=== PATIENT | female | born 1980 | race Hispanic/Latino ===

== ENCOUNTER 2017-10-14 20:18 | Emergency (ER) | payer MEDICAID, SELFPAY ==
[2017-10-14 22:03] LABS: #Basophils 0.1 thou/uL (0.0-0.2); #Eosinphils 0.1 thou/uL (0.0-0.7); #Lymphocytes 1.8 thou/uL (1.20-3.40); #Monocytes 0.8 thou/uL (0.11-0.59); #Neutrophils 9.2 thou/uL (1.40-6.50); %Basophils 0.5 % (0.0-1.0); %Eosinophils 0.5 % (0.0-10.0); %Monocytes 6.6 % (0.0-10.0); %Neutrophils 77.4 % (42.0-75.0); Hemoglobin 13.1 g/dL (12.0-16.0); Mean Corpuscular HGB CONC 33.7 g/dL (32.0-36.0); Mean Corpuscular Hemoglobin 29.1 pg (27.0-31.0); Mean Corpuscular Volume 86.5 fl (81.0-99.0); Mean Platelet Volume 6.6 fL (7.4-10.4); Platelet Count 360 thou/uL (130-400); RBC Distribution Width 12.6 % (11.5-14.5); Red Blood Cell (RBC) Count 4.51 mill/uL (4.20-5.40); White Blood Cell (WBC) Count 11.9 thou/uL (4.8-10.8)
[2017-10-14 22:26] LABS: ALT (SGPT) 14 U/L (8-55); AST (SGOT) 13 U/L (5-34); Albumin 4.1 g/dL (3.5-5.0); Alkaline Phosphatase 88 U/L (40-150); Anion Gap 12 mmol/L (10-20); BUN (Urea Nitrogen) 13 mg/dL (7.0-18.7); Bilirubin, Total 0.3 mg/dL (0.2-1.2); Calc. Creatinine Clearance 0 mL/min (70-130); Calcium 8.9 mg/dL (7.8-10.44); Carbon Dioxide 21 mmol/L (22-29); Chloride 111 mmol/L (98-107); Estimated GFR-MDRD Greater than 90; Glucose 119 mg/dL (70-105); Potassium 3.6 mmol/L (3.5-5.1); Protein, Total 7.1 g/dL (6.0-8.3); Sodium 140 mmol/L (136-145)
--- NOTE | 2017-10-14 22:29 | RAD ---
AP VIEW CHEST: Date: 10/14/17 INDICATION: Anxiety and fall. COMPARISON: None. IMPRESSION: No acute cardiopulmonary abnormality. COMMENTS: No comparisons available. The lungs are clear. Cardiomediastinal silhouette is within normal limits. No definite acute osseous abnormality is evident. POS: [facility]
[2017-10-14 23:08] LABS: Bilirubin Negative (Negative); Blood, Urine Small (Negative); Clarity CLOUDY (Clear); Glucose, Urine (Dipstick) Negative (Negative); Leukocyte Negative (Negative); Nitrite Negative (Negative); Protein, Urine (Dipstick) 30 mg/dL (Neg-Trace); Specific Gravity, Urine 1.023 (1.002-1.036)
[2017-10-14 23:09] LABS: Pregnancy Test - Urine (BHCG) Negative (Negative); Pregu Control Background? CLEAR/WHITE (CLR/WHITE); Pregu Control Bar Appear? YES (CONTROL BAR); Specific Gravity 1.023 (1.002-1.036)
[2017-10-14 23:10] LABS: Bacteria/HPF 1+ HPF (None Seen); Hyaline Casts/LPF 7-10 HYALINE CAST LPF (0-3 Hyaline); Pathc Cast-AUWi Flag 1.74 (0-2.49)
[2017-10-14 23:15] LABS: Crystals/HPF None Seen HPF (Negative); Yeast-All Forms None Seen HPF (None Seen)
== END 2017-10-15 01:06 | disposition home or self-care (01) ==
LOC: ERS 20:18
DX: R55 Syncope and collapse (principal)
CPT/HCPCS: 36415; 71045; 80053; 81003; 81015; 81025; 85025; 93005

== ENCOUNTER 2020-02-09 11:27 | Emergency (ER) | payer SELFPAY ==
[2020-02-09] MEDS ORDERED: Ondansetron PF 4 MG/2 ML Vial ONE (12:08)
[2020-02-09] MEDS ORDERED: Morphine 4 MG/ML VIAL ONE (12:08)
--- NOTE | 2020-02-09 12:25 | RAD ---
XR Knee Lt 4 View STANDARD HISTORY: Injury, left knee pain FINDINGS: No fracture or dislocation is identified. No joint effusion is identified.
--- NOTE | 2020-02-09 12:33 | CT ---
CT BRAIN WITHOUT CONTRAST: HISTORY: Injury, loss of consciousness FINDINGS: No evidence of acute infarct, hemorrhage, midline shift or abnormal extra-axial fluid collections is seen. The ventricular size is appropriate and the basilar cisterns are patent. The bony calvarium is intact. The mastoid air cells are well aerated. There is mucosal disease in the paranasal sinuses. IMPRESSION: No CT evidence of acute intracranial process.
--- NOTE | 2020-02-09 12:39 | CT ---
CT CERVICAL SPINE WITH CORONAL AND SAGITTAL REFORMATIONS AND NO IV CONTRAST: HISTORY: Injury, neck pain FINDINGS: Degenerative changes are present, most prominent at C5-6 level. No fracture, subluxation or facet malalignment is identified. No prevertebral soft tissue swelling is apparent. The visualized lung apices are unremarkable. IMPRESSION: No CT evidence for fracture or traumatic subluxation.
--- NOTE | 2020-02-09 12:39 | CT ---
CT FACE WITHOUT CONTRAST: HISTORY: Injury, trauma. COMPARISON: None. FINDINGS: Nasal bones are intact. The medial orbital rowell, lateral orbital rowell, zygoma, zygomatic arches ar e intact. The paranasal sinuses are clear. No nasal bone fracture. There is a rightward osseous na neisha spur of the osseous nasal septum. The mastoids are clear. Skull base is intact. Low-grade right periorbital soft tissue swelling. IMPRESSION: Low-grade right periorbital soft tissue swelling without acute facial fracture. POS: [facility]
== END 2020-02-09 13:36 | disposition home or self-care (01) ==
LOC: ERS 11:27
DX: S83.92XA Sprain of unspecified site of left knee, initial encounter (principal); S00.12XA Contusion of left eyelid and periocular area, initial encounter; S00.11XA Contusion of right eyelid and periocular area, initial encounter; M54.2 Cervicalgia; Y04.2XXA Assault by strike against or bumped into by another person, initial encounter
CPT/HCPCS: 70450; 70486; 72125; 94760; 96374; 96375; 99406; J2270; J2405

== ENCOUNTER 2023-12-08 15:47 | Emergency (ER) | payer SELFPAY, OTHER ==
[2023-12-08] MEDS ORDERED: Ondansetron PF 4 MG/2 ML Vial ONE (17:21)
[2023-12-08] MEDS ORDERED: Morphine 4 MG/ML VIAL ONE (17:21)
[2023-12-08 17:23] LABS: BHCG - Serum Negative (NEGATIVE); Pregs Control Background? CLEAR/WHITE (CLR/WHITE); Pregs Control Bar Appear? YES (CONTROL BAR)
== END 2023-12-08 18:51 | disposition home or self-care (01) ==
LOC: ERS 15:47
DX: S02.2XXA Fracture of nasal bones, initial encounter for closed fracture (principal); Y04.0XXA Assault by unarmed brawl or fight, initial encounter
CPT/HCPCS: 36415; 70450; 70486; 72125; 84703; 96374; 96375; J2270; J2405